=== PATIENT | female | born 1995 | race Two or more races ===

== ENCOUNTER 2018-03-10 09:19 | Emergency (ER) | payer OTHER ==
[~2018-03-10] VITALS: Ht 165.1 cm; Wt 100.2 kg
[2018-03-10 09:24] VITALS: BP 118/84; Ht 165.1 cm; Wt 100.2 kg
== END 2018-03-10 09:58 | disposition home or self-care (01) ==
LOC: ED 09:19
DX: J06.9 Acute upper respiratory infection, unspecified (principal); E06.3 Autoimmune thyroiditis; Z90.89 Acquired absence of other organs